=== PATIENT | male | born 1980 | race Hispanic/Latino ===

== ENCOUNTER 2017-05-29 17:09 | Emergency (ER) | payer SELFPAY ==
[2017-05-29 17:25] VITALS: O2SAT 99
[2017-05-29] MEDS ORDERED: HYDROcodone 7.5MG/APAP 325MG 1 EA TAB PO ONE (17:30)
--- NOTE | 2017-05-29 17:35 | ED.PDOC ---
History of Present Illness - General Chief Complaint: Lower Extremity Injury Stated Complaint: right foot pain Time Seen by Provider: 05/29/17 17:21 Source: patient, RN notes reviewed, Vital Signs reviewed Exam Limitations: no limitations - History of Present Illness Initial Comments: Patient come to ER with c/o R foot pain. He reports ~1 hour ago his right foot fell through the floor of the bathroom he was working on. His right foot stayed on the floor and curled over like it was folding in 07/06. He is having pain from his mid foot to his toes. Pain has worsened from /10 to 1010. Worsens with movement. Occurred: just prior to arrival Pain - Lower Extremity: severe: Right Foot Method of Injury: fell Improving Factors: rest Worsening Factors: movement Allergies/Adverse Reactions: Allergies Codeine Allergy (Verified 05/29/17 17:25) Review of Systems - Review of Systems Constitutional: States: no symptoms reported Respiratory: States: no symptoms reported Cardiology: States: no symptoms reported Musculoskeletal: States: see HPI Skin: States: no symptoms reported Neurological: States: no symptoms reported. Denies: numbness, paresthesia, tingling, weakness All other Systems: No Change from Baseline Past Medical History (General) - Patient Medical History Hx Seizures: Yes - epilepsy Hx Stroke: Yes - X3 Surgical History: other - Vaccination History Hx Tetanus, Diphtheria Vaccination: Yes Hx Influenza Vaccination: Yes Hx Pneumococcal Vaccination: Yes - Social History Hx Tobacco Use: Yes Hx Alcohol Use: No Hx Substance Use: No Hx Substance Use Treatment: No Hx Depression: No Family Medical History - Family History Mother Family History: Unknown Physical Exam - Physical Exam General Appearance: Alert, No apparent distress, Well Developed, Well Groomed, Well Hydrated, Well Nourished, Other - In obvious pain Cardiovascular/Respiratory: normal peripheral pulses, no respiratory distress Leg: normal inspection, non-tender, no evidence of injury, normal ROM Knee: normal inspection, non-tender, no evidence of injury, normal ROM Ankle: normal inspection, non-tender, no evidence of injury, normal ROM Foot: bone tenderness - R midfoot and metatarsals, limited ROM - due to pain, soft tissue tenderness, swelling Neuro/Tendon: normal sensation, normal motor functions, normal tendon functions , responds to pain, no evidence tendon injury Mental Status: alert, oriented x 3 Skin: normal color, warm/dry Comments: Vital Signs 11/25/17 17:14 Temperature 98.6 F Pulse Rate [ 94 H pulse ox] Respiratory 20 Rate Blood Pressure 179/113 [Left Arm] O2 Sat by Pulse 99 Oximetry Progress - Progress Progress: 05/29/17 17:32 Patient is allergic to Codeine - causes seizures, but reports no difficulty with Hydrocodone. Will give [place] 7.5mg for pain. 05/29/17 18:56 Foot wrapped in DONELL bandage and crutches given Patient would like to just use OTC medications for pain control. - EKG/XRAY/CT XRAY: R foot: No fracture or dislocation per Radiologist Departure - Departure Clinical Impression: Sprain of right foot Qualifiers: Encounter type: initial encounter Qualified Code(s): S93.601A - Unspecified sprain of right foot, initial encounter Time of Disposition: 18:56 Disposition: Discharge to Home or Self Care Condition: Good Departure Forms: ED Discharge - Pt. Copy, Patient Portal Self Enrollment Instructions: DI for Foot Sprain Diet: resume usual diet Activity: increase activity as tolerated Additional Instructions: Rest, Ice, Compression and Elevation
--- NOTE | 2017-05-29 18:47 | RAD ---
EXAM DESCRIPTION: Foot,Right 3 Views CLINICAL HISTORY: Midfoot pain s/p injury COMPARISON: None FINDINGS: 3 views were submitted. No fracture or dislocation is identified. Bone marrow attenuation is unremarkable. No radiopaque foreign body is identified. IMPRESSION: No acute fracture or dislocation. Electronically signed by: Max Sanchez 05/29/2017 6:46 PM [facility]
[2017-05-29 19:44] VITALS: BP 177/98; TEMP 99.4
== END 2017-05-29 19:20 | disposition home or self-care (01) ==
LOC: ER 17:09
DX: S93.601A Unspecified sprain of right foot, initial encounter (principal); G40.909 Epilepsy, unspecified, not intractable, without status epilepticus; Z88.6 Allergy status to analgesic agent; Z86.73 Personal history of transient ischemic attack (TIA), and cerebral infarction without residual deficits; Z87.891 Personal history of nicotine dependence; W19.XXXA Unspecified fall, initial encounter; Y92.89 Other specified places as the place of occurrence of the external cause

== ENCOUNTER → 2017-07-25 | Emergency (ER) | payer SELFPAY ==
[~2017-07-25] MED LIST: KETOROLAC TROMETHAMINE INJ 30 MG/ML VIAL IV ONE
--- NOTE | 2017-07-25 12:16 | ED.PDOC ---
History of Present Illness - General Chief Complaint: Fever Stated Complaint: fever, body aches, headache Time Seen by Provider: 07/25/17 12:13 Source: patient, family Additional Information: 37 YEAR OLD WAR PRESENTS TO THE ED WITH COMPLAINTS OF FEVER CHILLS COUGH BODY ACHE FOR 2-3 DAYS HE HAS HISTORY OF LEFT SIDED WEAKNESS AFTER A ? HE ALSO STATES HE HAD PROLONGED SEIZURES AFTER RECEIVING MORHINE AND DILAUDID FOR HIS HEADACHE LATER AFTER PROLONGED SEIZURES THAT LASTED FOR 2 DAYS HE WAS DIAGNOSED WITH STROKE ( DUE TO VASO SPASM )IN 2014 AT [facility] HE USES A CANE SINCE THEN [facility] CHEST PAIN NO HISTORY OF ASTHMA OR COPD - History of Present Illness Timing/Duration: 24 hours Severity: moderate Improving Factors: nothing Associated Symptoms: denies symptoms Allergies/Adverse Reactions: Allergies Codeine Allergy (Verified 07/25/17 12:05) Home Medications: Ambulatory Orders Amitriptyline HCl 50 mg PO DAILY 07/25/17 Azithromycin Tab [Zithromax Tab] 250 mg PO QDPC #6 tab 07/25/17 Lisinopril 10 mg PO DAILY 07/25/17 Oseltamivir Capsule [Tamiflu] 75 mg PO DAILY 10 Days #10 capsule 07/25/17 Review of Systems - Review of Systems Constitutional: States: see HPI EENTM: States: no symptoms reported Respiratory: States: no symptoms reported Cardiology: States: no symptoms reported Gastrointestinal/Abdominal: States: no symptoms reported Genitourinary: States: no symptoms reported Musculoskeletal: States: no symptoms reported Skin: States: no symptoms reported Neurological: States: no symptoms reported Endocrine: States: no symptoms reported Hematologic/Lymphatic: States: no symptoms reported All other Systems: Reviewed and Negative Past Medical History (General) - Patient Medical History Hx Seizures: Yes - epilepsy Hx Stroke: Yes - X3 Hx Hypertension: Yes Hx Diabetes: Yes Surgical History: other - Vaccination History Hx Tetanus, Diphtheria Vaccination: Yes Hx Influenza Vaccination: Yes Hx Pneumococcal Vaccination: Yes - Social History Hx Tobacco Use: Yes Hx Alcohol Use: No Hx Substance Use: No Hx Substance Use Treatment: No Hx Depression: No Family Medical History - Family History Mother Family History: Unknown Physical Exam - Physical Exam General Appearance: Alert, Comfortable Eye Exam: bilateral normal Ears, Nose, Throat: hearing grossly normal, normal ENT inspection, normal pharynx Neck: non-tender, full range of motion, supple Respiratory: chest non-tender, lungs clear, normal breath sounds, no respiratory distress, no accessory muscle use Cardiovascular/Chest: normal peripheral pulses, regular rate, rhythm, no edema, no gallop, no JVD, no murmur Peripheral Pulses: radial,right: 2+, radial,left: 2+, femoral,right: 2+, femoral ,left: 2+ Gastrointestinal/Abdominal: normal bowel sounds, non tender, soft, no organomegaly, no pulsatile mass Back Exam: normal inspection, no CVA tenderness, no vertebral tenderness Extremity: normal range of motion, non-tender Skin Exam: normal color, warm/dry Departure - Departure Clinical Impression: Fever in adult, Upper respiratory infection, Influenza Time of Disposition: 15:01 Disposition: Discharge to Home or Self Care Condition: Good Departure Forms: ED Discharge - Pt. Copy, Patient Portal Self Enrollment Diet: resume usual diet Activity: increase activity as tolerated Prescriptions: Azithromycin Tab [Zithromax Tab] 250 mg PO QDPC #6 tab Oseltamivir Capsule [Tamiflu] 75 mg PO DAILY 10 Days #10 capsule Home Medications: Ambulatory Orders Amitriptyline HCl 50 mg PO DAILY 07/25/17 Azithromycin Tab [Zithromax Tab] 250 mg PO QDPC #6 tab 07/25/17 Lisinopril 10 mg PO DAILY 07/25/17 Oseltamivir Capsule [Tamiflu] 75 mg PO DAILY 10 Days #10 capsule 07/25/17
[2017-07-25 14:10] VITALS: O2SAT 97
--- NOTE | 2017-07-25 15:04 | RAD ---
Procedure: XR CHEST 1 VIEW Exam Date: 07/25/2017 2:33 PM [employer]NALYST Ordering Provider: Raymundo Farley Clinical Indication: R/O PNEUMONIA Comparison: None Findings: Lungs are clear. Heart size is within normal limits. No acute osseous abnormality. Impression: No acute pulmonary process. Electronically signed by: Valentin Bejarano MD 07/25/2017 3:03 PM D[employer]IA ANALYST
[2017-07-25 15:41] VITALS: BP 155/102; TEMP 99.6
== END | disposition home or self-care (01) ==
LOC: ER 10:35
DX: J11.1 Influenza due to unidentified influenza virus with other respiratory manifestations (principal); J06.9 Acute upper respiratory infection, unspecified; R50.81 Fever presenting with conditions classified elsewhere; G40.909 Epilepsy, unspecified, not intractable, without status epilepticus; Z86.73 Personal history of transient ischemic attack (TIA), and cerebral infarction without residual deficits; I10 Essential (primary) hypertension; E11.9 Type 2 diabetes mellitus without complications; Z87.891 Personal history of nicotine dependence
CPT/HCPCS: 36415; 71045; 80048; 85025; 87804; J1885